=== PATIENT | female | born 1980 | race American Indian/Alaskan Native ===

== ENCOUNTER 2016-12-08 16:16 | Inpatient (IN) | payer BC, MEDICAID ==
[2016-12-08] MEDS ORDERED: ZOFRAN IV PRN (17:01)
[2016-12-08] MEDS ORDERED: AMBIEN PO PRN (17:01)
[2016-12-08] MEDS ORDERED: BENADRYL PO PRN (17:01)
[2016-12-08] MEDS ORDERED: DEEP SEA NS PRN (17:01)
[2016-12-08] MEDS ORDERED: COLACE PO PRN (17:01)
[2016-12-08] MEDS ORDERED: TYLENOL PO PRN (17:01)
[2016-12-08 17:57] LABS: Basophils % (Auto) 1.3 % (0.0-1.8); Eosinophils % (Auto) 2.2 % (0.0-4.3); Hematocrit 35.5 % (30.3-42.9); Hemoglobin 11.1 gm/dl (10.1-14.3); Mean Corpuscular HGB Conc 31 % (30-34); Mean Corpuscular Volume 77 fl (79-97); Platelet Count 257 K/mm3 (140-440); Red Blood Count 4.61 M/mm3 (3.65-5.03); Red Cell Distribution Width 18.5 % (13.2-15.2); White Blood Count 5.4 K/mm3 (4.5-11.0)
[2016-12-08 17:58] LABS: Mean Corpuscular Hemoglobin 24 pg (28-32)
[2016-12-08 18:17] LABS: Alanine Aminotransferase 7 units/L (7-56); Lactate Dehydrogenase 243 units/L (91-180); Uric Acid 6.1 mg/dL (3.5-7.6)
--- NOTE | 2016-12-08 20:05 | History and Physical Report ---
History of Present Illness Date of examination: 12/08/16 Date of admission: 12/08/16 16:16 Chief complaint: sent from [facility] for delivery History of present illness: Pt is a 36 year old female IMELDA 12/29/16 at 37w0d who presents from [facility] with chronic hypertension on Procardia XL 30 mg with suspected superimposed preeclampsia (BP 152/93,153/91, 154/100 in office) and recommendation to proceed with delivery. Pt reports intermittent contractions, but denies leakage of fluid and vaginal bleeding. She reports intermittent headache that has not changed over the past week and denies blurry vision, RUQ or scotomata. She has had care at [facility] since 8 wks complicated by advanced maternal age, hyperthyroidism, Uterine Fibroids and chronic hypertension on Procardia XL 30 mg. She does not want further fertility. She is GBS negative. She does have one son who is autistic. Past History Past Medical History: hypertension (PIH), thyroid disease (hyperthyroidism ) Past Surgical History: section, D&C, myomectomy ART DIRECTOR History: abnormal PAP smear, fibroids Social history: - Obstetrical History Expected Date of Delivery: 12/29/16 Actual Gestation: 37 Week(s) 0 Day(s) : 4 Para: 2 Hx # Term Pregnancies: 2 Number of Pregnancies: 0 Spontaneous Abortions: 1 Induced : 0 Number of Living Children: 2 Medications and Allergies Allergies Allergy/AdvReac Type Severity Reaction Status Date / Time No Known Allergies Allergy Verified 05/14/14 05:37 Home Medications Medication Instructions Recorded Confirmed Last Taken Type Propylthiouracil [Propylthiouracil] 50 tab PO DAILY 05/14/14 05/14/14 05/13/14 07:00 History 50mg Docusate Sodium [Colace] 100 mg PO BID PRN #60 capsule 05/16/14 Unknown Rx Ibuprofen [Motrin 600 MG tab] 600 mg PO Q6H PRN #50 tablet 05/16/14 Unknown Rx Vit No.44/Iron/FA/Dha 1 cap PO DAILY #30 capsule 05/16/14 Unknown Rx [Prenate Mini Softgel] oxyCODONE /ACETAMINOPHEN [Percocet 2 tab PO Q6H PRN #50 tablet 05/16/14 Unknown Rx 5/325 mg] Acetaminophen/Codeine [Tylenol #3] 1 tab PO Q6H PRN #7 tab 06/30/16 Unknown Rx Ondansetron [Zofran TAB] 4 mg PO Q8HR PRN #10 tablet 06/30/16 Unknown Rx Active Meds: Active Medications Acetaminophen (Tylenol) 650 mg PO Q4H PRN PRN Reason: Pain MILD(1-3)/Fever >100.5/STEPHEN Diphenhydramine HCl (Benadryl) 25 mg PO Q6H PRN PRN Reason: Itching Docusate Sodium (Colace) 100 mg PO Q12H PRN PRN Reason: Constipation Lactated Ringer's (Lactated Ringers) 1,000 mls @ 125 mls/hr IV DIRECT NATHANIEL Ondansetron HCl (Zofran) 4 mg IV Q6H PRN PRN Reason: Nausea And Vomiting Sodium Chloride (Deep Sea) 2 spray NS Q4H PRN PRN Reason: Congestion Zolpidem Tartrate (Ambien) 10 mg PO ONCE PRN PRN Reason: Sleep Review of Systems All systems: negative - Vital Signs Vital signs: Vital Signs Pulse BP 74 146/88 12/08/16 17:05 12/08/16 17:05 Temp Pulse Resp BP Pulse Ox 97 H 140/84 12/08/16 19:50 12/08/16 19:50 - Physical Exam Breasts: Positive: deferred Cardiovascular: Regular rate Abdomen: Positive: soft (obese, gravid ) Uterus: Positive: enlarged (gravid ) Extremities: Positive: normal - Obstetrical FHR: auscultation normal Uterine Contraction Monitor Mode: External Uterine Contraction Pattern: Absent Uterine Tone Measurement Phase: Resting Results Result Diagrams: 12/08/16 17:31 12/08/16 17:31 Abnormal lab results 12/08/16 12/08/16 Range/Units 17:31 17:31 MCV 77 L (79-97) fl MCH 24 L (28-32) pg RDW 18.5 H (13.2-15.2) % [place] % (Auto) 11.2 H (0.0-7.3) % Creatinine 0.4 L (0.7-1.2) mg/dL Lactate Dehydrogenase 243 H (91-180) units/L All other labs normal. Assessment and Plan A: IUP at 37 wks Chronic hypertension with superimposed mild preeclampsia Hyperthyroidism Advanced Maternal Age Previous x 2 Previous myomectomy Uterine fibroids Obesity Undesired Fertility P: Admit to labor and delivery PIH labs NPO after midnight Proceed with section with bilateral tubal ligation on 12/09/16 at 7am Continue to closely monitor maternal and status
[2016-12-09 03:27] LABS: Bacteria,Urine 1+ /HPF (Negative); Bilirubin,Urine NEG (Negative); Blood,Urine SM (Negative); Ketones,Urine NEG (Negative); Leukocyte Esterase,Urine NEG (Negative); Mucus,Urine FEW /HPF; Nitrite,Urine NEG (Negative); Protein,Urine <15 mg/dL mg/dL (Negative); Urobilinogen,Urine < 2.0 mg/dL (<2.0); WBC,Urine < 1.0 /HPF (0.0-6.0)
[2016-12-09] MEDS: LACTATED RINGERS 1,000 ML IV SCH ×2 (05:15→06:27)
[2016-12-09] MEDS ORDERED: REGLAN IV ONE (05:33)
[2016-12-09] MEDS ORDERED: PEPCID IV ONE (05:33)
[2016-12-09] MEDS ORDERED: BICITRA PO ONE (05:33)
[2016-12-09] MEDS ORDERED: ANCEF/STERILE WATER 2 GM/20 ML 2 GM/20 ML SYRINGE IV NR (06:00)
[2016-12-09] MEDS ORDERED: PITOCin/NS 20 UNIT/1000ML DRIP 20 UNITS/1,000 ML BAG IV SCH ×2 (06:00→08:00)
[2016-12-09] MEDS ORDERED: LACTATED RINGERS 1,000 ML IV SCH (06:00)
--- NOTE | 2016-12-09 06:57 | Procedure Note ---
OB Delivery Note - Delivery Date of Delivery: 12/09/16 Surgeon: EDWARD MONTALVO Estimated blood loss: 1000cc - Section Preop diagnosis: repeat , desires sterilization Postop diagnosis: same section procedure: section, repeat low transverse, bilateral tubal ligation Disposition: PACU Complications: other (extensive abdominal adhesions) - A at 1 minute: 9 at 5 minutes: 9 Infant Gender: Female (weight 6 lbs. 2 oz.)
--- NOTE | 2016-12-09 06:58 | Anesthesia Day of Surgery ---
Anesthesia Day of Surgery - Day of Surgery Patient Examined: Yes Patient H&P Reviewed: Yes Patient is NPO: Yes
--- NOTE | 2016-12-09 06:59 | Operative Report ---
Operative Report Operative Report: Date of surgery: 12/09/2016 Preoperative diagnosis: at 37+1 weeks; mild preeclampsia; prior delivery; undesired fertility Postoperative diagnosis: Same as above; extensive pelvic adhesions; multiple uterine fibroids Procedure: repeat delivery and bilateral tubal ligation via [place] method; lysis of adhesions Surgeon: Julia Young M.D. Anesthesia: Regional Estimated blood loss: 1000 mL Pathology: Bilateral ampullary portion of fallopian tubes Urine output: 450ml Findings: Liveborn female with Apgars of 9 and 9 weight 6 lbs. 2 oz.; multiple uterine myomas and extensive pelvic adhesions Indications: A 36-year-old at 37+1 weeks who presents for a repeat delivery and bilateral tubal ligation. The patient's course has been complicated by mild preeclampsia at term. Per [facility] recommendation the patient was scheduled for delivery Procedure: The patient was taken to the operating room and given regional anesthesia without complication. She was prepped and draped in a normal sterile fashion. A Pfannenstiel skin incision was made down to layer the fascia which was nicked in the midline extended laterally with the Bovie cautery. The superior aspect of the rectus fascia was grasped with [place] clamps x2 and the rectus muscles off sharply. This was done in inferior fashion as well. The rectus muscle midline and peritoneum entered bluntly. Sharp lysis of adhesions had to be performed secondary to multiple adhesions upon entry into the peritoneal cavity. The uterus was densely adherent to the rectus muscle. An Jh retractor was then inserted. A bladder blade was placed. The vesicouterine peritoneum was then entered sharply with Metzenbaum scissors. A bladder flap was created digitally. A low transverse uterine incision was then made and extended digitally. There was clear fluid upon entry into the uterine cavity. The head was delivered through the incision with fundal pressure. A nuchal cord 1 was manually reduced. The cord was clamped and cut x2 and infant was passed off to pediatrics. The placenta was then manually extracted. The uterus was then exteriorized and cleared of clots and debris. The uterine incision was then closed in a running locked fashion with 0 Vicryl additional imbricating stitch was applied for 2 layer closure. Attention then was turned to the patient's fallopian tube. The ampullary portion of the tube was grasp with a Wallace on the right. The mesosalpinx was entered with the Bovie cautery and a window was created. The distal and proximal area of the ampullary tube were ligated 2 with O plain gut. A 1 cm portion of fallopian tube was then excised. This was performed on the contralateral side as well. The posterior cul-de-sac was then copiously irrigated. The uterus was replaced back into the abdomen and pelvis were the gutters were then irrigated. The Jh retractor was then removed. The peritoneum was then reapproximated with 3-0 Vicryl incorporating the rectus muscle. The fascia was then closed with 0 Vicryl in a running fashion. The skin was then reapproximated with 3-0 Monocryl on a Janak needle subcuticular fashion. Steri-Strips to place across the incision and a Crede procedures performed at the end of the surgery. A pressure dressing was applied to the incision. The surgery productive of a liveborn female infant with Apgars of 9 and 9 weight 6 lbs. 2 oz. The patient was taken to the recovery room in stable condition. All sponge laps and needle counts correct x2.
[2016-12-09] MEDS ORDERED: MAGNESIUM SULFATE 40GM/1000ML 40 GM/1,000 ML BAG IV SCH (07:00)
[2016-12-09] MEDS ORDERED: NEO SYNEPHRINE ONE (07:00)
[2016-12-09] MEDS ORDERED: NACL 0.9% ONE (07:00)
[2016-12-09] MEDS ORDERED: MAGNESIUM SULFATE 4GM/100ML 4 GM/100 ML BAG IV ONE ×2 (07:00→10:35)
[2016-12-09] MEDS ORDERED: MORPHINE ONE (07:01)
[2016-12-09] MEDS ORDERED: MYLICON PO PRN (07:02)
[2016-12-09] MEDS ORDERED: NARCAN 0.4 MG/1 ML IV PRN ×2 (07:02→09:22)
[2016-12-09] MEDS ORDERED: LANSINOH TP PRN (07:02)
[2016-12-09] MEDS ORDERED: TUCKS PAD TP PRN (07:02)
--- NOTE | 2016-12-09 07:03 | Anesthesia Consultation ---
Anesthesia Consult and Med Hx Date of service: 12/09/16 - Airway ROM Head & Neck: Adequate Mental/Hyoid Distance: Adequate - Pre-Operative Health Status ASA Pre-Surgery Classification: ASA3 Proposed Anesthetic Plan: Epidural, Spinal - Pulmonary Hx Smoking: No Hx Asthma: No COPD: No Hx Pneumonia: No - Cardiovascular System Hx Hypertension: Yes (chronic htn with superimposed pre-eclampsia) - Central Nervous System Hx Seizures: No Hx Psychiatric Problems: No - Gastrointestinal Hx Gastroesophageal Reflux Disease: Yes - Endocrine Hx Renal Disease: No Hx End Stage Renal Disease: No Hx Thyroid Disease: Yes Hx Hypothyroidism: No Hx Hyperthyroidism: Yes - Hematic Hx Anemia: No Hx Sickle Cell Disease: No - Other Systems Hx Alcohol Use: No Hx Obesity: Yes
[2016-12-09] MEDS ORDERED: NACL 0.9% IR ONE (07:45)
[2016-12-09] MEDS ORDERED: WATER FOR IRRIG STERILE IR ONE (07:45)
[2016-12-09] MEDS ORDERED: D5LR 1,000 ML IV SCH (08:00)
[2016-12-09] MEDS ORDERED: SODIUM CHLORIDE FLUSH SYRINGE 10 ML IV NR ×2 (08:00→10:00)
[2016-12-09] MEDS ORDERED: LACTATED RINGERS 0 ML ONE (08:03)
[2016-12-09] MEDS ORDERED: ZOFRAN ONE (09:00)
[2016-12-09] MEDS ORDERED: ZOFRAN IV PRN (09:22)
[2016-12-09] MEDS ORDERED: DILAUDID IV PRN (09:22)
[2016-12-09] MEDS ORDERED: NUBAIN IV PRN (09:22)
[2016-12-09] MEDS: TORADOL IV PRN ×2 (09:29→16:12)
[2016-12-09] MEDS ORDERED: MAGNESIUM SULFATE 40GM/1000ML 40 GM/1,000 ML BAG IV ONE (10:35)
[2016-12-09 20:43] LABS: Hematocrit 27.1 % (30.3-42.9); Hemoglobin 8.7 gm/dl (10.1-14.3)
[2016-12-10] MEDS: MOTRIN PO PRN ×2 (01:15→13:22)
[2016-12-10] MEDS: PERCOCET 5/325 PO PRN ×3 (01:16→22:26)
[2016-12-10] MEDS ORDERED: BOOSTRIX IM ONE (06:30)
--- NOTE | 2016-12-10 11:08 | Progress Note ---
Assessment and Plan - Patient Problems (1) Preeclampsia Current Visit: Yes Status: Acute Qualifiers: Trimester: T Plan to address problem: will continue to monitor blood pressures closely Will initiate antihypertensive as needed Subjective - Subjective Date of service: 12/10/16 Interval history: Patient reports passage of flatus. She states that she feels hungry. Her magnesium will be discontinue this morning. The blood pressures have been normotensive. Patient reports: appetite normal, pain well controlled [place]: doing well Objective - Vital Signs Latest vital signs: Vital Signs Temp Pulse Resp BP 12/10/16 04:00 98.6 F 85 20 131/83 12/10/16 02:00 98.9 F 87 20 140/85 12/10/16 00:00 98.8 F 88 20 125/86 12/09/16 20:45 98.1 F 82 20 136/67 12/09/16 18:59 70 18 116/51 12/09/16 16:10 98.2 F 76 20 131/88 12/09/16 13:30 98.7 F 79 18 95/79 12/09/16 11:28 67 20 116/72 12/09/16 11:23 65 20 120/73 12/09/16 11:18 66 20 117/76 12/09/16 11:13 64 20 122/74 12/09/16 11:08 63 20 127/79 Intake and Output 12/09/16 12/10/16 12/10/16 22:59 06:59 14:59 Intake Total 950 300 Output Total 300 1050 Balance 650 -750 Intake: IV 350 MAGNESIUM SULFATE 40GM/ 200 1000ML 40 gm In 1,000 ml @ 2 GM/HR 50 mls/hr IV DIRECT NATHANIEL Rx#:[id number] PITOCin/NS 20 UNIT/1000ML 150 DRIP 20 units In 1,000 ml @ As Directed IV TITR NATHANIEL Rx#:[id number] Oral 600 300 Output: Urine 300 1050 Indwelling Catheter 300 1050 Other: Total, Intake Amount 120 300 Total, Output Amount 300 1050 - Exam Abdomen: Present: distention Uterus: Present: normal, firm Incision: Present: dressed - Labs Labs: Abnormal lab results 12/09/16 Range/Units 20:03 Hgb 8.7 L (10.1-14.3) gm/dl Hct 27.1 L D (30.3-42.9) %
[2016-12-11] MEDS: PERCOCET 5/325 PO PRN ×4 (02:52→22:49)
[2016-12-11] MEDS: MILK OF MAGNESIA PO PRN ×2 (04:31→10:06)
--- NOTE | 2016-12-11 08:25 | Progress Note ---
Assessment and Plan A/P POD # 2 s/p repeat c/s and BTL and pree VSS bp noormalize asympt h/h 11.1/35.5---8.7/27.1 asympt iron supplements B+ no rhogma indicated bottle and breast feeding +flatus ( increase mom, colace and stool softners consider d/c home tomorrow with adewquate bowel function Subjective - Subjective Date of service: 12/11/16 Principal diagnosis: s/p repeat c/s, s/p mag for mild pree Patient reports: appetite normal, voiding normally, pain well controlled, flatus , ambulating normally : doing well, nursing well, bottle feeding Objective - Vital Signs Latest vital signs: Vital Signs Temp Pulse Resp BP 12/11/16 03:50 98.8 F 83 18 110/66 12/11/16 02:52 18 12/11/16 00:05 98.6 F 88 18 116/68 12/10/16 22:26 18 12/10/16 21:55 99.2 F 94 H 20 109/71 12/10/16 15:45 97.9 F 78 20 118/70 12/10/16 12:50 98.9 F 99 H 20 107/69 12/10/16 09:35 97.8 F 74 20 131/70 Intake and Output 12/10/16 12/11/16 12/11/16 22:59 06:59 14:59 Intake Total 360 240 Output Total 1400 300 Balance -1040 -60 Intake: Oral 240 Intake, Free Water 120 240 Output: Urine 1400 300 Void 1400 300 Other: Total, Intake Amount 240 Total, Output Amount 800 300 # Voids Void 1 - Exam Breasts: Present: normal Cardiovascular: Present: Regular rate, Normal S1 Lungs: Present: Clear to auscultation, Normal air movement Abdomen: Present: normal appearance, soft, normal bowel sounds Vulva: both: normal Uterus: Present: normal, firm, fundal height below umbilicus (2cm below) Deep Tendon Reflex Grade: Normal +2 Incision: Present: normal, dry, dressed
[2016-12-11] MEDS: MOTRIN PO PRN (13:42)
[2016-12-12] MEDS: PERCOCET 5/325 PO PRN ×2 (05:26→12:05)
--- NOTE | 2016-12-12 08:50 | Progress Note ---
Assessment and Plan - Patient Problems (1) Preeclampsia Current Visit: Yes Status: Acute Qualifiers: Trimester: T Plan to address problem: Patient doing well Discharge home Subjective - Subjective Date of service: 12/12/16 Principal diagnosis: s/p repeat c/s, s/p mag for mild pree Interval history: The patient is without any significant complaints. She is breast-feeding and tolerating a regular diet without complication. Her pain is being well controlled. She has had normalization of her blood pressures. Patient reports: appetite normal, voiding normally, pain well controlled [place]: doing well, nursing well Objective - Vital Signs Latest vital signs: Vital Signs Temp Pulse Resp BP 12/12/16 05:26 18 12/12/16 05:06 98.8 F 86 20 121/80 12/12/16 01:05 98.5 F 95 H 20 123/73 12/11/16 22:49 18 12/11/16 22:10 89 140/86 12/11/16 16:12 98.7 F 88 18 112/80 12/11/16 12:35 98.5 F 94 H 20 111/72 Intake and Output 12/11/16 12/12/16 12/12/16 22:59 06:59 14:59 Intake Total 480 480 Balance 480 480 Intake: Oral 480 120 Intake, Free Water 360 Other: Total, Intake Amount 480 120 # Voids Void 1 2 - Exam Abdomen: Present: normal appearance, soft
--- NOTE | 2016-12-12 08:52 | Discharge Summary ---
Providers - Providers Date of Admission: 12/08/16 16:16 Date of discharge: 12/12/16 Attending physician: EDWARD MONTALVO Primary care physician: EDWARD MONTALVO Hospitalization Reason for admission: section, other Procedure: section, bilateral tubal ligation (eclampsia), repeat low transverse Incision: normal, dry Other procedures: tubal ligation Discharge diagnosis: IUP at term delivered [place] baby: female Hospital course: The patient was admitted to labor and delivery secondary to findings of mild preeclampsia at term. The patient underwent a repeat delivery and bilateral tubal ligation. Please see operative note for details of surgery. The patient received magnesium sulfate for 24 hours post delivery. She had significant improvement in her blood pressures postoperatively. Condition at discharge: Good Disposition: DISCHARGED TO HOME OR SELFCARE - Discharge Diagnoses (1) Preeclampsia Status: Acute Qualifiers: Trimester: T Plan - Discharge Medications Prescriptions: Docusate Sodium [Colace] 100 mg PO BID PRN #60 capsule PRN Reason: Constipation Ferrous Sulfate [Feosol 325 MG tab] 325 mg PO BID #60 tablet Ibuprofen [Motrin] 800 mg PO Q8HR PRN #60 tablet PRN Reason: Pain oxyCODONE /ACETAMINOPHEN [Percocet 5/325] 1 tab PO Q6HR PRN #30 tablet PRN Reason: Pain Oxycodone HCl/Acetaminophen [Percocet 7.5/325 mg] 1 each PO Q6HR PRN #45 tablet PRN Reason: Pain - Provider Discharge Summary Activity: no sex for 6 weeks, no heavy lifting 4 weeks, no strenuous exercise Diet: routine Instructions: routine Additional instructions: [] Smoking cessation referral if applicable(refer to patient education folder for contact #) [] Refer to [facility] Booklet Call your doctor immediately for: * Fever > 100.5 * Heavy vaginal bleeding ( >1 pad per hour) * Severe persistent headache * Shortness of breath * Reddened, hot, painful area to leg or breast * Drainage or odor from incision. * Keep incision clean and dry at all times and follow doctor's instructions regarding bathing/showering follow up in 2 weeks for an incision check - Follow up plan
[2016-12-12 11:24] VITALS: BP 140/85
[2016-12-12] MEDS: MOTRIN PO PRN (12:05)
== END 2016-12-12 12:15 | disposition home or self-care (01) | DRG 765 ==
LOC: LD 16:16 → OB 12-09 10:30
PROVIDERS: ADMIT Obstetrics & Gynecology; ATTEND Obstetrics & Gynecology
PROC: 10D00Z1 Extraction of Products of Conception, Low, Open Approach (ICD-10-PCS; principal; 2016-12-09)
PROC: 0UB70ZZ Excision of Bilateral Fallopian Tubes, Open Approach (ICD-10-PCS; 2016-12-09)
DX: O34.211 Maternal care for low transverse scar from previous cesarean delivery (principal); O14.04 Mild to moderate pre-eclampsia, complicating childbirth; O13.4 Gestational [pregnancy-induced] hypertension without significant proteinuria, complicating childbirth; O34.13 Maternal care for benign tumor of corpus uteri, third trimester; O99.284 Endocrine, nutritional and metabolic diseases complicating childbirth; O99.89 Other specified diseases and conditions complicating pregnancy, childbirth and the puerperium; E05.90 Thyrotoxicosis, unspecified without thyrotoxic crisis or storm; D25.9 Leiomyoma of uterus, unspecified; O99.214 Obesity complicating childbirth; E66.9 Obesity, unspecified; N73.6 Female pelvic peritoneal adhesions (postinfective); O09.523 Supervision of elderly multigravida, third trimester; Z3A.37 37 weeks gestation of pregnancy; Z37.0 Single live birth; Z68.32 Body mass index [BMI] 32.0-32.9, adult
CPT/HCPCS: 36415; 81001; 82565; 83615; 84450; 84460; 84550; 85014; 85018; 85025; 86850; 86900; 86901; 88302; 90715; 99211; A6250; G0463; J0690; J1170; J1885; J2270; J2370; J2405; J2590; J2765; J3475; J7120